=== PATIENT | female | born 1965 | race Two or more races ===

== ENCOUNTER 2024-08-07 22:02 | Emergency (ER) | payer MEDICAID, SELFPAY ==
[2024-08-07 22:09] VITALS: PULSE 98; RESP 18
[2024-08-07 22:25] VITALS: BP 127/83; PULSE 103; RESP 18; TEMP 36.6; O2SAT 98
--- NOTE | 2024-08-07 22:31 | XR_ITS ---
Examination: CT thoracic spine, without contrast. 2-D sagittal reconstructions. 2-D coronal reconstructions. 3-D reconstructions. Date and time of exam:August 07, 2024 1138 hrs. Indications: Patient fell today with injury to the upper back, upper back pain CTDI: vol (mGy):16.6 DLP: (mGycm):531 Technique: Multiple 1.25 mm axial sections of the thoracic spine without intravenous contrast have been obtained. 2-D sagittal and coronal reconstructions have been obtained. 3-D reconstructions have been obtained. Low dose protocols were performed. One or more of the following dose reduction techniques were used; automated exposure control, adjustment of the mA and/or KV according to patient size, use of iterative reconstruction technique. Findings: Moderate osteopenia Adequate alignment thoracic vertebral bodies on the lateral view No thoracic vertebral body compression fracture Thoracic pedicles laminated transverse and posterior spinous processes intact 12 mm osteolytic lesion T3 4 mm osteolytic lesion T4 10 mm osteolytic lesion T5 3 mm osteolytic lesion T7 Impression: No acute thoracic fracture Osteolytic lesions as above, recommend elective MRI thoracic spine follow-up, pre and postcontrast, to exclude osseous metastatic disease
--- NOTE | 2024-08-07 22:31 | XR_ITS ---
Examination: CT lumbar spine, without contrast. 2-D sagittal reconstructions. 2-D coronal reconstructions. 3-D reconstructions. Date and time of exam:August 07, 2024 1138 hrs. Indications: Patient fell today with injury to the lower back, lower back pain CTDI: vol (mGy):14.8 DLP: (mGycm):396 Technique: Multiple 1.25 mm axial sections of the lumbar spine without intravenous contrast have been obtained. 2-D sagittal and coronal reconstructions have been obtained. 3-D reconstructions have been obtained. Low dose protocols were performed. One or more of the following dose reduction techniques were used; automated exposure control, adjustment of the mA and/or KV according to patient size, use of iterative reconstruction technique. Findings: Satisfactory alignment lumbar vertebral bodies Moderate osteopenia No lumbar vertebral body compression fracture No spondylolisthesis Lumbar pedicles, laminae, transverse and posterior spinous processes intact No focal lumbar disc protrusion Impression: No acute lumbar fracture
--- NOTE | 2024-08-07 22:31 | XR_ITS ---
Examination: PA chest single view Technique: Upright PA chest single view Exam date and time: August 07, 2024 10:52 PM Indications: Onset chest pain today. Findings: Normal heart size No pneumonia or pulmonary edema Suspicious for 10 mm pulmonary nodule right upper lobe Intact osseous structures Impression: No pneumonia or pulmonary edema Recommend lordotic chest follow-up to exclude 10 mm pulmonary nodule right upper lobe
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
[2024-08-08 00:28] VITALS: RESP 18
== END 2024-08-08 00:29 | disposition home or self-care (01) ==
PROVIDERS: Emergency Provider Emergency Medicine; PCP Physician Assistant
DX: S30.0XXA Contusion of lower back and pelvis, initial encounter (principal); S20.229A Contusion of unspecified back wall of thorax, initial encounter; M53.84 Other specified dorsopathies, thoracic region; R07.9 Chest pain, unspecified; Y35.813A Legal intervention involving manhandling, suspect injured, initial encounter
CPT/HCPCS: 71045; 72128; 72131; 99284

== ENCOUNTER 2025-03-23 11:45 | Outpatient (RCR) | payer MEDICAID, SELFPAY ==
--- NOTE | 2025-03-23 12:09 | XR_ITS ---
Examination: ANDREINA, hepatobiliary radioisotope scan Gallbladder ejection fraction study. Date and time of exam: March 23, 2025 1216 hours INDICATIONS: Epigastric pain 6 months with acid reflux Technique: 5.6 mCi of 99M Hepatolite administered. Serial imaging then obtained from immediate through 60 minutes. 1.2 mcg selective catheter Kinevac administered for gallbladder ejection fraction study. Findings: Radioisotope activity within the liver is reasonably homogenous. Gallbladder, common bile duct small bowel activity noted Impression: Gallbladder activity Abnormal gallbladder ejection fraction, 22%, normal greater than 35%
== END 2025-03-28 23:59 | disposition home or self-care (01) ==
LOC: SNUC 11:45
PROVIDERS: PCP Physician Assistant; Referring Provider Internal Medicine Gastroenterology; Visit Provider Internal Medicine Gastroenterology
DX: R93.2 Abnormal findings on diagnostic imaging of liver and biliary tract (principal)
CPT/HCPCS: 78227; A9537; J2805